=== PATIENT | female | born 1995 | race Caucasian/White ===

== ENCOUNTER 2021-01-14 21:44 | Emergency (ER) | payer SELFPAY ==
[2021-01-14 21:50] VITALS: BP 120/61; PULSE 74; TEMP 97.8; BMI 22.4
[2021-01-14] MEDS ORDERED: LIDOCAINE HCL 1%, 10 MG/ML (50 mL VIAL) INF ONE (22:45)
[2021-01-14] MEDS ORDERED: DIPHTH,PERTUSS(ACELL),TET 0.5 ML DISP.SYRIN IM ONE ×2 (22:45→22:56)
[2021-01-14] MEDS ORDERED: LIDOCAINE HCL 1%, 10 MG/ML (20ML VIAL) ONE (22:46)
== END 2021-01-14 23:35 | disposition home or self-care (01) ==
LOC: JER 21:44
PROC: 0HQ1XZZ Repair Face Skin, External Approach (ICD-10-PCS; principal; 2021-01-14)
PROC: 3E0234Z Introduction of Serum, Toxoid and Vaccine into Muscle, Percutaneous Approach (ICD-10-PCS; 2021-01-14)
DX: S01.112A Laceration without foreign body of left eyelid and periocular area, initial encounter (principal)
CPT/HCPCS: 90715; 99284-25

== ENCOUNTER 2021-01-19 06:22 | Emergency (ER) | payer SELFPAY ==
[2021-01-19 07:00] VITALS: BP 98/59; PULSE 72; TEMP 98; BMI 23.9
== END 2021-01-19 07:35 | disposition home or self-care (01) ==
LOC: JER 06:22
DX: Z48.02 Encounter for removal of sutures (principal)
CPT/HCPCS: 99281-25